=== PATIENT | female | born 1970 | race African-American/Black ===

== ENCOUNTER 2024-03-21 14:22 | Emergency (ER) | payer MEDICARE, SELFPAY ==
[2024-03-21 14:43] VITALS: BP 143/82; PULSE 90; RESP 16; TEMP 37; O2SAT 97
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
[2024-03-21] MEDS: SILVER SULFADIAZINE 1% CR 50 GM JAR (*BKC) 1 APPLIC TOPICAL (15:30)
== END 2024-03-21 15:43 | disposition home or self-care (01) ==
PROVIDERS: Emergency Provider Nurse Practitioner Family
DX: T24.212A Burn of second degree of left thigh, initial encounter (principal); T24.111A Burn of first degree of right thigh, initial encounter; E78.00 Pure hypercholesterolemia, unspecified; I12.0 Hypertensive chronic kidney disease with stage 5 chronic kidney disease or end stage renal disease; E11.22 Type 2 diabetes mellitus with diabetic chronic kidney disease; N18.6 End stage renal disease; Z99.2 Dependence on renal dialysis; Z89.112 Acquired absence of left hand; Z89.111 Acquired absence of right hand; Z89.432 Acquired absence of left foot; Z89.431 Acquired absence of right foot
CPT/HCPCS: 99203; A9270; G0463